=== PATIENT | female | born 2000 | race Caucasian/White ===

== ENCOUNTER 2022-01-15 07:36 | Emergency (ER) | payer BC ==
[~2022-01-15] VITALS: Ht 149.9 cm; Wt 52.2 kg
--- NOTE | 2022-01-15 07:36 | NUR ---
TO ER BED 7. BIB PARENTS FOR HAVE A FEVER, NOSEBLEEDS, AND HEADACHE X3 DAYS PT IS AFEBRILE UPON ARRIVAL. 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 VITALS ARE WITHIN NORMAL LIMITS. AWAITING MD ORDERS.
--- NOTE | 2022-01-15 08:12 | NUR ---
DR DYE AT BEDSIDE FOR EVAL
--- NOTE | 2022-01-15 08:40 | NUR ---
COVID PCR SWAB OBTAINED AND SENT TO LAB
[2022-01-15] MEDS ORDERED: KETOROLAC TROMETHAMINE 15 MG/ML VIAL ONE (09:56)
[2022-01-15] MEDS ORDERED: IBUP-1955 PO (09:57)
[2022-01-15] MEDS: KETOROLAC TROMETHAMINE INJ 30 MG/ML VIAL IM ONE (10:03)
[2022-01-15 10:06] VITALS: BP 111/70
== END 2022-01-15 10:06 | disposition home or self-care (01) ==
LOC: ER 07:46
DX: J06.9 Acute upper respiratory infection, unspecified (principal); B97.89 Other viral agents as the cause of diseases classified elsewhere; Z20.822 Contact with and (suspected) exposure to COVID-19
CPT/HCPCS: 71045-TC; C9803; J1885; U0003

== ENCOUNTER 2023-06-15 21:10 | Emergency (ER) | payer BC ==
[~2023-06-15] VITALS: Ht 144.8 cm; Wt 54.4 kg
[~2023-06-15 21:10] MED LIST: IBUP-1955 PO
[2023-06-15 23:51] VITALS: BP 127/83; TEMP 98.6; O2SAT 99
== END 2023-06-15 23:51 | disposition home or self-care (01) ==
LOC: ER 21:11
DX: S83.92XA Sprain of unspecified site of left knee, initial encounter (principal); V89.2XXA Person injured in unspecified motor-vehicle accident, traffic, initial encounter; Y93.89 Activity, other specified; Y92.89 Other specified places as the place of occurrence of the external cause; Y99.8 Other external cause status
CPT/HCPCS: 73564-TC

== ENCOUNTER 2024-10-18 18:02 | Emergency (ER) | payer BC ==
[~2024-10-18] VITALS: Ht 157.5 cm; Wt 61.2 kg
[2024-10-18] MEDS ORDERED: ACETAMINOPHEN ES 500 MG TABLET ONE (19:21)
[2024-10-18] MEDS ORDERED: IBUPROFEN 600 MG TABLET ONE (19:21)
[2024-10-18] MEDS: ACETAMINOPHEN ES 500 MG TABLET PO ONE (19:26)
[2024-10-18] MEDS: IBUPROFEN 600 MG TABLET PO ONE (19:26)
[2024-10-18 19:35] LABS: PREGNANCY TEST URINE QUAL NEGATIVE (NEGATIVE)
[2024-10-18] MEDS ORDERED: METH-647 PO (20:33)
[2024-10-18] MEDS ORDERED: LIDO30AD10 TP (20:33)
[2024-10-18] MEDS ORDERED: IBUP-1490 PO (20:33)
[2024-10-18 20:58] VITALS: BP 130/61; TEMP 98; O2SAT 99
== END 2024-10-18 21:00 | disposition home or self-care (01) ==
LOC: ER 18:09
DX: R07.89 Other chest pain (principal); M25.551 Pain in right hip; M25.552 Pain in left hip; V43.52XA Car driver injured in collision with other type car in traffic accident, initial encounter; Y93.89 Activity, other specified; Y92.488 Other paved roadways as the place of occurrence of the external cause; Y99.8 Other external cause status
CPT/HCPCS: 71045-TC; 73521; 84703-TC